=== PATIENT | male | born 1975 ===

== ENCOUNTER 2017-10-30 11:13 | Outpatient (CLI) | payer OTHER ==
[~2017-10-30] VITALS: Ht 152.4 cm; Wt 72.6 kg
== END 2017-10-30 11:30 | disposition home or self-care (01) ==
LOC: OFIC 805 11:13
DX: H90.41 Sensorineural hearing loss, unilateral, right ear, with unrestricted hearing on the contralateral side (principal); H61.23 Impacted cerumen, bilateral; H93.11 Tinnitus, right ear; R42 Dizziness and giddiness

== ENCOUNTER 2017-11-02 10:19 | Outpatient (CLI) | payer OTHER | END 2017-11-02 13:43 | disposition home or self-care (01) | LOC: MRI 10:19 | DX: R42 Dizziness and giddiness (principal); H90.41 Sensorineural hearing loss, unilateral, right ear, with unrestricted hearing on the contralateral side | CPT/HCPCS: 70553 ==

== ENCOUNTER 2017-11-13 07:43 | Outpatient (CLI) | payer OTHER ==
[~2017-11-13] VITALS: Ht 152.4 cm; Wt 72.6 kg
== END 2017-11-13 08:00 | disposition home or self-care (01) ==
LOC: OFIC 805 07:43
DX: H90.71 Mixed conductive and sensorineural hearing loss, unilateral, right ear, with unrestricted hearing on the contralateral side (principal); R42 Dizziness and giddiness; H61.23 Impacted cerumen, bilateral; H93.13 Tinnitus, bilateral